=== PATIENT | male | born 1950 | race Two or more races ===

== ENCOUNTER 2022-07-01 08:23 | Day surgery (SDC) | payer OTHER ==
[~2022-07-01] VITALS: Ht 177.8 cm; Wt 97.5 kg
[~2022-07-01 08:23] MED LIST: ASPI-543 PO; ATOR40TA52 PO; CHOL20007 PO; ISOS5TAB PO; LEVO25TA6 PO; LISI-275 PO; MELA5TAB10 PO; MULT-1018 PO; PANT40T PO; TURM1TAB PO
[2022-07-01] MEDS ORDERED: LIDOCAINE VISCOUS 2% 15ML UD PO ONE (08:45)
[2022-07-01] MEDS ORDERED: fentaNYL CITRATE 100 MCG/2 ML VL IV ONE (08:45)
[2022-07-01] MEDS ORDERED: MIDAZOLAM HCL 2MG/2ML 2ml VIAL (1mg/ml) IV ONE (08:45)
[2022-07-01] MEDS ORDERED: IODIXANOL 320MG/ML 100ML BTL IV ONE (10:28)
[2022-07-01] MEDS ORDERED: LIDOCAINE 2%HCL (LOCAL ANESTH.) INJ 20ML MDV ONE (10:28)
[2022-07-01] MEDS ORDERED: VERAPAMIL 2.5MG/ML INJ 2ML VIAL IV ONE (10:40)
[2022-07-01] MEDS ORDERED: ANGIOMAX 250 MG VIAL IV ONE (10:40)
[2022-07-01] MEDS ORDERED: HEPARIN SODIUM (PORCINE) 5000 UNITS/ML 1ML VIAL ONE (10:40)
[2022-07-01] MEDS ORDERED: SODIUM CHL 0.9% 0 ML ONE (10:40)
== END 2022-07-01 13:49 | disposition home or self-care (01) ==
LOC: CATH 08:23
PROVIDERS: ATTEND Internal Medicine
DX: I35.0 Nonrheumatic aortic (valve) stenosis (principal); I10 Essential (primary) hypertension; E78.5 Hyperlipidemia, unspecified; Z79.899 Other long term (current) drug therapy; Z87.891 Personal history of nicotine dependence; Z20.822 Contact with and (suspected) exposure to COVID-19; Z90.49 Acquired absence of other specified parts of digestive tract; Z98.890 Other specified postprocedural states
CPT/HCPCS: 93312; C1769; C1887; C1894; J1644; J2250; J3010; J7030; Q9967; U0003; 99152; 99153